=== PATIENT | male | born 1950 | race Caucasian/White ===

== ENCOUNTER 2020-02-21 10:46 | Emergency (ER) | payer OTHER ==
[2020-02-21] MEDS ORDERED: Adacel (T-DAP) 0.5 ML SYRINGE ONE (11:35)
--- NOTE | 2020-02-21 12:52 | RAD ---
LEFT LEG TWO VIEWS: Date: 02-21-2020 FINDINGS: No fracture or opaque foreign body was seen. The bones appear intact. IMPRESSION: No acute findings. POS: HOME
== END 2020-02-21 12:37 | disposition home or self-care (01) ==
LOC: BURERS 10:46
DX: S81.812A Laceration without foreign body, left lower leg, initial encounter (principal); Z79.899 Other long term (current) drug therapy; W22.8XXA Striking against or struck by other objects, initial encounter
CPT/HCPCS: 12001; 90471; 90715